=== PATIENT | female | born 1945 | race Caucasian/White ===

== ENCOUNTER 2016-07-21 20:19 | Observation (INO) | payer OTHER, MEDICARE ==
--- NOTE | 2016-07-21 20:17 | EDPHY ---
H & P Constitutional: Initial Vital Signs Temperature (C) 36.6 C 07/21/16 20:27 Heart Rate 82 07/21/16 20:27 Respiratory Rate 20 07/21/16 20:27 Blood Pressure 149/70 H 07/21/16 20:27 O2 Sat (%) 96 07/21/16 20:27 O2 Delivery Mode Room Air O2 (L/minute) 2 Allergies/Adverse Reactions: bacitracin [From Neosporin] Allergy (Unknown, Verified 07/21/16 20:30) bacitracin zinc [From Neosporin] Allergy (Unknown, Verified 07/21/16 20:30) gramicidin D [From Neosporin] Allergy (Unknown, Verified 07/21/16 20:30) latex [Latex] Allergy (Unknown, Verified 07/21/16 20:30) neomycin sulfate [From Neosporin] Allergy (Unknown, Verified 07/21/16 20:30) phenytoin sodium [From Dilantin] Allergy (Unknown, Verified 07/21/16 20:30) Rash phenytoin sodium extended [From Dilantin] Allergy (Unknown, Verified 07/21/16 20 :30) Rash polymyxin B [From Neosporin] Allergy (Unknown, Verified 07/21/16 20:30) polymyxin B sulfate [From Neosporin] Allergy (Unknown, Verified 07/21/16 20:30) tobramycin [Tobramycin] Allergy (Unknown, Verified 07/21/16 20:30) Home Medications: Medication Instructions Recorded ESTRADIOL 01/05/10 Hycosamine 01/05/10 PROMETRIUM 01/05/10 SYNTHROID 01/05/10 ZESTRIL 01/05/10 oxyCODONE/APAP 5/325 [Percocet 1 tab PO Q6 #15 tab 01/05/10 5/325] Medical Decision Making ED Course/Re-evaluation: CHIEF COMPLAINT: "felt like somebody was squeezing on top of my left breast" HISTORY OF PRESENT ILLNESS: The patient is a 70 y/o female arriving via EMS with "squeezing" left-sided chest pain onset today around 14:00. She developed nausea last night around 23:00 that has persisted today. She has felt general malaise throughout the day. She describes her chest pain as waxing and waning and radiates to her back. She denies shortness of breath, dizziness, near- syncope. She feels like the pressure is not present upon assessment. She reports she scored in the 90th percentile with a calcium score of 404 on a heart scan in May 2016. She has not had any provocative cardiac testing. REVIEW OF SYSTEMS: A 10 point review of systems was performed and is negative with the exception of the elements mentioned in the history of present illness. PHYSICAL EXAM: HR, BP, O2 Sat, RR. Temp noted General Appearance: Alert, well hydrated, appropriate, and non-toxic appearing. Head: Atraumatic without scalp tenderness or obvious injury Eyes: Pupils equal, round, reactive to light and accommodation, EOMI, no trauma , no injection. Ears: Clear bilaterally, no perforation, normal landmarks Nose: Atraumatic, no rhinorrhea, clear. Throat: There is no erythema or exudates, no lesions, normal tonsils, mucus membranes moist. Neck: Supple, 2+ carotid upstroke, nontender, no lymphadenopathy. Respiratory: No retractions, no distress, no wheezes, and no accessory muscle use. Lungs are clear to auscultation bilaterally. Cardiovascular: Regular rate and rhythm, no murmurs, rubs, or gallops. Bilateral carotid, radial, dorsalis pedis, and posterior tibial pulses intact. Good capillary refill all extremities. Gastrointestinal: Abdomen is soft, nontender, non-distended, no masses, no rebound, no guarding, no peritoneal signs. Musculoskeletal: Normal active ROM of all extremities, atraumatic. Neurological: Alert, appropriate, and interactive. The patient has normal DTRs and non-focal cranial nerves, motor, sensory, and cerebellar exam. Skin: No rashes, good turgor, no nodules on palpation. Past medical history: Epilepsy Past surgical history: Denies Family history: Noncontributory Social history: Lives [place] [address] in [facility]. Neurologist: Dr. Morrissey Prior medical records reviewed including EBCT 05/24/16 and ED visit 09/22/14 for paresthesia and weakness. DIAGNOSTICS/PROCEDURES/CRITICAL CARE TIME: The 12 lead EKG was interpreted by myself. EKG performed at 20:27 has an abnormal baseline and shows ST depression. Repeat EKG at 20:38 shows normal sinus rhythm rate 66 that is similar to previous EKGs. See hard copy and/or "tracemaster" electronic copy for interpretation. Study: Chest x-ray Indication: Pain Results: Chest x-ray was obtained. The results of the study are negative. Radiologist agrees. I viewed the images myself on the PACS system. DIFFERENTIAL DIAGNOSIS: The differential diagnosis for the patient's chest pain included but was not limited to myocardial ischemia, pulmonary embolus, chest wall pain, pleural inflammation, and pulmonary infectious causes. MEDICAL DECISION MAKING: This is a 70 y/o female with a calcium score of 404 from two months ago presenting with almost 24 hours of nausea and squeezing chest pain onset about 6 hours ago. Her exam is unremarkable. She self-administered 324mg PO aspirin at 17:00. EMS administered 2 nitro en route, which improved her chest pain from 5/10 to 0/10, but resulted in a headache. Plan for full cardiac work up. Initial EKG showed some ST depression, but repeat EKG 10 minutes later showed normal sinus rhythm consistent with prior EKGs. Chest x-ray is negative for acute process. CHEM sample was hemolyzed and needs to be redrawn. Plan for admission regardless of troponin. (Adryan Cosme) 2216: this patient was signed over to me at 10:00 p.m. shift change. Pending a troponin she had left-sided chest pressure chest discomfort with nausea no history of coronary artery disease except elevated calcium score. No history of stress test. Patient be admitted to Dr. Valentin the hospitalist service for chest discomfort serial enzymes, stress testing cardiac rule out. At this time I did evaluate her she is hemodynamically stable no acute distress. Denies chest pain. Full-dose aspirin was taken by the patient earlier, nitroglycerin was given by EMS 2 rounds which improved her chest discomfort. Her initial EKG had some ST segment flattening 2nd EKG was unremarkable. It is noted her sodium is low at [address] Slade her efficiency manager is aware of. Patient to be admitted to EACU observation status for ACS rule out. (Shady Haider) - Data Points Laboratory Results: Laboratory Results 07/21/16 20:40 07/21/16 21:30 07/21/16 07/21/16 21:30 20:40 WBC 5.57 10^3/uL (3.80-9.50) RBC 4.40 10^6/uL (4.18-5.33) Hgb 14.6 g/dL (12.6-16.3) Hct 39.6 % (38.0-47.0) MCV 90.0 fL (81.5-99.8) MCH 33.2 pg (27.9-34.1) MCHC 36.9 H g/dL (32.4-36.7) RDW 12.3 % (11.5-15.2) Plt Count 248 10^3/uL (150-400) MPV 9.3 fL (8.7-11.7) Neut % (Auto) 57.2 % (39.3-74.2) Lymph % (Auto) 33.2 % (15.0-45.0) Allen % (Auto) 7.4 % (4.5-13.0) Eos % (Auto) 1.1 % (0.6-7.6) Baso % (Auto) 0.7 % (0.3-1.7) Nucleat RBC Rel Count 0.0 % (0.0-0.2) Absolute Neuts (auto) 3.19 10^3/uL (1.70-6.50) Absolute Lymphs (auto) 1.85 10^3/uL (1.00-3.00) Absolute Monos (auto) 0.41 10^3/uL (0.30-0.80) Absolute Eos (auto) 0.06 10^3/uL (0.03-0.40) Absolute Basos (auto) 0.04 10^3/uL (0.02-0.10) Absolute Nucleated RBC 0.00 10^3/uL (0-0.01) Immature Gran % 0.4 % (0.0-1.1) Immature Gran # 0.02 10^3/uL (0.00-0.10) Sodium 126 L mEq/L TNP (134-144) Potassium 3.7 mEq/L TNP (3.5-5.2) Chloride 96 L mEq/L TNP (97-110) Carbon Dioxide 23 mEq/l TNP (22-31) Anion Gap 7 mEq/L TNP (8-16) BUN 8 mg/dL TNP (7-23) Creatinine 0.7 mg/dL TNP (0.6-1.0) Estimated GFR > 60 TNP Glucose 97 mg/dL TNP (70-100) Calcium 8.2 L mg/dL TNP (8.5-10.4) Troponin I 0.019 ng/mL REJ (0-0.034) NT-Pro-B Natriuret Pep 358 H pg/mL TNP (0-125) Specimen Hemolysis PULP ROLLER Medications Given: Discontinued Medications Aspirin (Aspirin) 324 mg PO EDNOW ONE Stop: 07/21/16 20:37 Last Admin: 07/21/16 20:59 Dose: Not Given Ondansetron HCl (Zofran) 4 mg IVP EDNOW ONE Stop: 07/21/16 20:37 Last Admin: 07/21/16 20:59 Dose: Not Given Departure - Departure Disposition: [facility] Inpatient Acute Clinical Impression: Chest pain Qualifiers: Chest pain type: other chest pain Qualifier Code: (R07.89) Other chest pain Condition: Fair Referrals: Patient,NotPresent [Unknown] - As per Instructions Report Scribed for: Adryan Cosme Report Scribed by: Samreen Green Date of Report: 07/21/16 Time of Report: 20:33
--- NOTE | 2016-07-21 20:29 | CPEKG ---
Heart Rate: 76 RR Interval: 789 P-R Interval: 160 QRSD Interval: 90 QT Interval: 420 QTC Interval: 473 P [place]: 66 QRS [place]: 22 T Wave [place]: 44 EKG Severity - ABNORMAL ECG - EKG Impression: SINUS RHYTHM EKG Impression: MULTIPLE VENTRICULAR PREMATURE COMPLEXES EKG Impression: MINIMAL ST DEPRESSION, ANTERIOR LEADS Electronically Signed By: Adryan Cosme 21-Jul-2016 21:01:34
[2016-07-21] MEDS ORDERED: ONDANSETRON 4 MG/2 ML VIAL IVP ONE (20:36)
[2016-07-21] MEDS ORDERED: NITROGLYCERIN 0.4 MG BTL SL PRN (20:36)
[2016-07-21] MEDS ORDERED: ASPIRIN 81 MG CHEWABLE TAB PO ONE (20:36)
--- NOTE | 2016-07-21 20:41 | CPEKG ---
Heart Rate: 66 RR Interval: 909 P-R Interval: 156 QRSD Interval: 82 QT Interval: 428 QTC Interval: 449 P [place]: 54 QRS [place]: 14 T Wave [place]: 36 EKG Severity - NORMAL ECG - EKG Impression: SINUS RHYTHM Electronically Signed By: Adryan Cosme 21-Jul-2016 21:01:34
[2016-07-21 20:48] LABS: % IMMATURE GRANULYOCYTES 0.4 % (0.0-1.1); ABSOLUTE IMMATURE GRANULOCYTES 0.02 10^3/uL (0.00-0.10); ADD DIFF? NO; ADD MORPH? NO; ADD SCAN? NO; ATYPICAL LYMPHOCYTE FLAG 10 (0-99); FRAGMENT RBC FLAG 0 (0-99); HEMATOCRIT 39.6 % (38.0-47.0); HEMOGLOBIN 14.6 g/dL (12.6-16.3); LEFT SHIFT FLG 0 (0-99); LIPEMIA HEMOLYSIS FLAG 90 (0-99); MEAN CELL HEMOGLOBIN 33.2 pg (27.9-34.1); MEAN CELL HEMOGLOBIN CONCENTR. 36.9 g/dL (32.4-36.7); MEAN PLATELET VOLUME 9.3 fL (8.7-11.7); PLATELET CLUMPS FLAG 0 (0-99); PLATELET COUNT 248 10^3/uL (150-400); RED CELL DISTRIBUTION WIDTH 12.3 % (11.5-15.2)
[2016-07-21] MEDS ORDERED: ACETAMINOPHEN 500 MG TAB ONE (20:54)
--- NOTE | 2016-07-21 21:32 | DX ---
PA and Lateral Chest X-ray 5 hours History: Chest pain. Findings: Heart size and pulmonary vasculature are normal. The lungs are clear without infiltrates or effusions. There is no pneumothorax. The osseous structures are intact. Impression: Normal chest x-ray.
[2016-07-21 21:50] LABS: ANION GAP 7 mEq/L (8-16); CALCIUM 8.2 mg/dL (8.5-10.4); CARBON DIOXIDE 23 mEq/l (22-31); CHLORIDE 96 mEq/L (97-110); CREATININE 0.7 mg/dL (0.6-1.0); GLOMERULAR FILTRATION RATE > 60; GLUCOSE 97 mg/dL (70-100); POTASSIUM 3.7 mEq/L (3.5-5.2); SODIUM 126 mEq/L (134-144)
[2016-07-21 22:02] LABS: TROPONIN I 0.019 ng/mL (0-0.034)
[2016-07-21 23:25] VITALS: RESP 16
[2016-07-22] MEDS ORDERED: ONDANSETRON 4 MG/2 ML VIAL IVP PRN (00:22)
[2016-07-22] MEDS ORDERED: hydrALAZINE 20 MG/ML VIAL IVP PRN (00:22)
[2016-07-22] MEDS ORDERED: ACETAMINOPHEN 325 MG TAB PO PRN (00:22)
[2016-07-22] MEDS ORDERED: LISINOPRIL 5 MG TAB PO ONE (00:22)
[2016-07-22] MEDS ORDERED: PROMETHAZINE HCL 25 MG/ML VIAL IVP PRN (00:22)
[2016-07-22 00:44] LABS: ALBUMIN 3.3 g/dL (3.5-5.0); BILIRUBIN,TOTAL 0.6 mg/dL (0.1-1.4); BILIRUBIN-CONJUGATED 0.1 mg/dL (0.0-0.5); BILIRUBIN-UNCONJUGATED 0.5 mg/dL (0.0-1.1); TOTAL PROTEIN 6.2 g/dL (6.3-8.2)
[2016-07-22 00:56] LABS: TROPONIN I 0.02 ng/mL (0-0.034)
--- NOTE | 2016-07-22 01:41 | GHP ---
[f rep st] HISTORY AND PHYSICAL DATE OF ADMISSION: 07/21/2016 CHIEF COMPLAINT: Chest pain. HISTORY: The patient is a 70-year-old female, who developed new onset of chest pain today. She noti prasad a squeezing, left-sided chest pain at 2 o'clock this afternoon. When she woke up this morning, s he had nausea. The chest pain was off and on for a few hours, but she is currently chest pain-free. She denies any radiation. The pain is nonpleuritic, and she denies any shortness of breath. She williamson s never had any chest pain like this previously, and she has never had previous stress testing. She did recently, however, have a calcium score done. It was elevated. PAST MEDICAL HISTORY: 1. Seizure disorder. 2. Hypertension. 3. Hyponatremia. 4. Depression. 5. Lupus, in remission. PAST SURGICAL HISTORY: 1. ACL repair. 2. Ovarian exploratory surgery. MEDICATIONS: Please see computer record for full detailed list. ALLERGIES: To latex, Dilantin, Neosporin, and aminoglycoside eye drops. SOCIAL HISTORY: No alcohol. She drinks 1 glass of wine per night. She lives alone. 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 REVIEW OF SYSTEMS: Complete review of systems obtained. Review of systems is negative on constituti onal, HEENT, GI, pulmonary, cardiovascular, , hematologic, endocrine, and psych, except for positiv e pertinent and negatives which were listed as in HPI. FAMILY HISTORY: Extensive for coronary artery disease in their 60s. Her aunt of coronary arter y disease in her 60s. Her father suffered his first coronary event in his 60s. Her grandfather of a massive AL at age 54. PHYSICAL EXAMINATION: GENERAL: Well-developed, well-nourished female, in no acute distress. VITAL SIGNS: Temperature is 36.3, pulse 67, blood pressure 155/82, saturating 94% on room air. EYES: Nor mal conjunctivae. Pupils equal, react to light. ENT: Normal ears and nose. Hearing intact. Zuleima l lips and teeth. Oropharynx moist. NECK: Trachea midline. No thyromegaly. CHEST: Normal respir atory effort. LUNGS: Clear to auscultation bilaterally. CARDIOVASCULAR: Regular rhythm. No murmu r. No lower extremity edema. ABDOMEN: Soft, nontender. No hepatosplenomegaly. SKIN: Warm, dry, intact. No rash. MUSCULOSKELETAL: No cyanosis or clubbing. Strength 5/5 upper and lower extremiti es. NEUROLOGIC: Cranial nerves intact. Normal sensation to light touch. PSYCH: Alert and oriente d x3. Normal mood and affect. Normal judgment and insight. Normal memory. LABS: White count 5.57, hematocrit 39.6, platelets 248. Sodium 126, potassium 3.7, chloride 96, bic arb 23, BUN 8, creatinine 0.7, glucose 97. BNP is 358. EKG reviewed by me and my personal interpretation is normal sinus rhythm. No ST or T-wave changes. Chest x-ray is negative. ASSESSMENT AND PLAN: 1. Chest pain. She has multiple risk factors including family history, hyperlipidemia, hypertension , and an elevated calcium score. We will follow serial troponins and EKG. We will recheck a lipid p danielle in the morning. She reports primary care had noted it to be elevated in the past and was on the verge of starting her on a statin drug in the near future. We will also start her on a daily aspiri n. We will order stress testing for tomorrow morning. She states she is unable to exercise secondar y to chronic knee pain and plantar fasciitis. We will therefore order a Lexiscan with [facility]. 2. Hyponatremia. She follows with Dr. Slade. He recently decreased her Prozac down to 10 mg. Her last outpatient sodium was 128, and it has now worsened to 126. We will check a urine sodium. I f elevated, that would indicate SIADH, and a fluid restriction should be initiated. 3. Seizure disorder. Home med reconciliation is pending. 4. Hypertension. She takes only lisinopril 5 mg at night. We will watch blood pressures throughout her hospitalization, as she may need increasing dosage. CODE STATUS: Full. ADMISSION STATUS: We will admit to observation and depending on cardiac evaluation results, will det ermine further course. DVT PROPHYLAXIS: She is moderate risk. We will place her on subcu Lovenox. /[id number]/MODL
--- NOTE | 2016-07-22 05:20 | CPEKG ---
Heart Rate: 68 RR Interval: 882 P-R Interval: 164 QRSD Interval: 84 QT Interval: 428 QTC Interval: 456 P [place]: 41 QRS [place]: 25 T Wave [place]: 49 EKG Severity - NORMAL ECG - EKG Impression: SINUS RHYTHM Electronically Signed By: Sb Huber 22-Jul-2016 10:52:16
[2016-07-22 05:29] LABS: ALANINE AMINOTRANSFERASE 23 IU/L (9-52); ALBUMIN 3.2 g/dL (3.5-5.0); ALKALINE PHOSPHATASE 51 IU/L (38-126); ANION GAP 5 mEq/L (8-16); ASPARTATE AMINOTRANSFERASE 22 IU/L (14-46); BILIRUBIN,TOTAL 0.5 mg/dL (0.1-1.4); BILIRUBIN-CONJUGATED 0.2 mg/dL (0.0-0.5); BILIRUBIN-UNCONJUGATED 0.3 mg/dL (0.0-1.1); CALCIUM 8.5 mg/dL (8.5-10.4); CARBON DIOXIDE 27 mEq/l (22-31); CHLORIDE 101 mEq/L (97-110); CHOLESTEROL 186 mg/dL (140-220); CHOLESTEROL/HDL RATIO 3.21 RATIO (1.00-4.44); CREATININE 0.9 mg/dL (0.6-1.0); GLOMERULAR FILTRATION RATE > 60; GLUCOSE 93 mg/dL (70-100); HIGH DENSITY LIPOPROTEIN 58 mg/dL (40-85); LOW DENSITY LIPOPROTEIN 110 mg/dL (80-100); NON-HIGH DENSITY LIPOPROTEIN 128 mg/dL (90-129); POTASSIUM 4.5 mEq/L (3.5-5.2); SODIUM 133 mEq/L (134-144); TOTAL PROTEIN 5.7 g/dL (6.3-8.2); TRIGLYCERIDE 94 mg/dL (35-135); VERY LOW DENSITY LIPOPROTEINS 18 mg/dL (8-25)
[2016-07-22 05:38] LABS: TROPONIN I < 0.012 ng/mL (0-0.034)
[2016-07-22] MEDS ORDERED: NS 500 ML IV ONE (07:00)
[2016-07-22 07:43] VITALS: PULSE 91; TEMP 98.4; O2SAT 93
[2016-07-22] MEDS ORDERED: ASPIRIN EC 325 MG TAB PO SCH (09:00)
[2016-07-22] MEDS ORDERED: ENOXAPARIN 40 MG/0.4 ML SYR SC SCH (09:00)
[2016-07-22] MEDS ORDERED: NS 1,000 ML IV ONE (11:12)
[2016-07-22] MEDS ORDERED: OXcarbazepine 300 MG TAB PO SCH (11:15)
[2016-07-22] MEDS ORDERED: ASPIRIN EC 81 MG TAB PO SCH (11:30)
[2016-07-22] MEDS ORDERED: ESTRADIOL 0.5 MG TAB PO SCH (11:30)
[2016-07-22] MEDS ORDERED: PILOCARPINE HCL 5 MG TAB PO SCH (11:30)
[2016-07-22] MEDS ORDERED: PROGESTERONE,MICR 100 MG CAP PO SCH (11:30)
[2016-07-22] MEDS ORDERED: FLUoxetine 10 MG CAP PO SCH (11:30)
--- NOTE | 2016-07-22 14:10 | ECHO ---
[id number] + + [address] : : [place] [address] : : [phone] + + Adult Echocardiographic Report + ----+ :Name: DANK MYLES HStudy Date: 07/22/2016 10:25 AM : : Hospital Admission Number: [id number] : :: 1945 Gender: Female Height: 62 i n : :Age: 70 yrs Race: WH Weight: 140 lb : :Reason For Study: nausea, sharp chest pain : : BSA: 1.6 met ers2: :History: nausea : + ----+ MMode/2D Measurements & Calculations IVSd: 1.4 cm RVDd: 2.7 cm FS: 43.2 % Ao root diam: LVPWd: 0.86 cm LVIDd: 2.8 cm EDV(Teich): 3.1 cm LVIDs: 1.6 cm 28.9 ml LA dimension: ESV(Teich): 3.0 cm 6.9 ml EF(Teich): 76.1 % LVLd ap4: 8.4 cm SV(MOD-sp4): EDV(MOD-sp4): 73.0 ml 105.0 ml LVLs ap4: 7.0 cm ESV(MOD-sp4): 32.0 ml EF(MOD-sp4): 69.5 % Normal Measurement Values: + + :LVIDd (3.5-5.7cm) IVSd (0.6-1.1cm) LVPWd (0.6-1.1cm) Aortic Root (2.0-3.7cm)Left Atrium (1.5-4.0cm): :LV Vol(d) (76-115ml) LV Vol(s) (29-48ml) Ejec Fraction (50-65%)PV Danny (0.6- 1.2m/s) TV Danny (0.4-1.0m/s) : :MV E Danny (0.8-1.0m/s)MV A Danny (0.3-1.0m/s)LVOT Danny (0.7-1.2m/s) Asc Ao Danny ( 0.9-1.8m/s) : + + Doppler Measurements & Calculations MV E max danny: MV V2 max: MV P1/2t max danny: Ao V2 max: 61.7 cm/sec 93.5 cm/sec 61.5 cm/sec 101.4 cm/sec MV A max danny: MV max PG: MV P1/2t: 77.0 msec Ao max P.8 cm/sec 3.5 mmHg MVA(P1/2t): 2.9 cm2 4.1 mmHg MV E/A: 0.67 MV V2 mean: MV dec slope: MV dec time: 54.6 cm/sec 0.24 sec MV mean P.1 cm/sec2 1.3 mmHg MV V2 VTI: 18.8 cm LV V1 max: PA V2 max: TR max danny: 84.9 cm/sec 93.4 cm/sec 209.6 cm/sec LV V1 max PG: PA max PG: TR max P.6 mmHg 2.9 mmHg 3.5 mmHg RAP systole: 5.0 mmHg RVSP(TR): 22.6 mmHg Left Ventricle The left ventricle is normal in size and function. Proximal septal thickening is noted. Echo findings are not consistent with left ventricular outflow obstruction. Ejection Fraction = 70%. There is Doppler evidence for diastolic dysfunction. No regional wall motion abnormalities noted. Right Ventricle The right ventricle is normal in size and function. Atria The left atrial size is normal. Right atrial size is normal. Mitral Valve The mitral valve leaflets appear thickened, but open well. Reduced posterior mitral leaflet mobility. There is no mitral valve stenosis. There is mild mitral regurgitation. Tricuspid Valve The tricuspid valve is normal in structure and function. There is no tricuspid stenosis. There is trace to mild tricuspid regurgitation. Right ventricular systolic pressure is 23mmHg. Aortic Valve The aortic valve is trileaflet. There is no aortic stenosis. There is no aortic insufficiency. Pulmonic Valve The pulmonic valve is not well visualized. There is no pulmonic valvular regurgitation. Great Vessels The aortic root is normal size. Pericardium/Pleural There is no pericardial effusion. Conclusion A two-dimensional transthoracic echocardiogram with M-mode and Doppler was performed. The left ventricle is normal in size and function. Ejection Fraction = 70%. Proximal septal thickening is noted. Echo findings are NOT consistent with left ventricular outflow obstruction. There is Doppler evidence for diastolic dysfunction. The mitral valve leaflets appear thickened. Reduced posterior mitral leaflet mobility. There is mild mitral regurgitation. There is trace to mild tricuspid regurgitation. Right ventricular systolic pressure is 23mmHg. Final Reading Physician: Celeste Henderson signed on 07/22/2016 02:09 PM Ordering Physician: Bibi Ortiz Performed By: Evie Talavera
[2016-07-22 15:07] VITALS: BP 112/73
--- NOTE | 2016-07-22 15:57 | GDS ---
[f rep st] DISCHARGE SUMMARY DISCHARGE DIAGNOSES: 1. Intermittent chest pain, probably not cardiac. 2. Hyponatremia. 3. Nausea and dehydration. 4. History of depression. 5. History of seizure disorder. 6. Chronic hyponatremia. HISTORY: This is a 70-year-old female who presented with intermittent chest pain and nausea. HOSPITAL COURSE: Patient was admitted. Initial sodium was quite low at 123. Urine sodium was consi stent with SIADH. She was given a little bit of fluid, and she is feeling better. She was nauseous and had a headache in the morning and wanted to defer her stress testing until outpatient. She had n egative troponins and echocardiogram was negative. This is reasonable. She will be discharged home to be followed up with Cardiology. DISPOSITION: Home. DISCHARGE MEDICATIONS: She is to resume her home medicines. FOLLOWUP: She is instructed to follow up with Dr. Plata, whom she requests, in 1-2 weeks for outp atient stress testing. /[id number]/MODL
[2016-07-23] MEDS ORDERED: LEVOTHYROXINE 75 MCG TAB PO SCH (06:00)
== END 2016-07-22 14:23 | disposition home or self-care (01) ==
LOC: EDUNIT# → F2W 23:05
PROVIDERS: ADMIT Internal Medicine; ATTEND Internal Medicine
DX: R07.89 Other chest pain (principal); E87.1 Hypo-osmolality and hyponatremia; R11.0 Nausea; E86.0 Dehydration; F32.9 Major depressive disorder, single episode, unspecified; G40.909 Epilepsy, unspecified, not intractable, without status epilepticus; I10 Essential (primary) hypertension
CPT/HCPCS: 71020; 93005; 93306; G0378; J1650; J2405; J2550

== ENCOUNTER → 2016-09-06 | Outpatient (CLI) | payer OTHER, MEDICARE | LOC: FIMAGING 12:50 | PROVIDERS: ATTEND Internal Medicine Nephrology | DX: R91.8 Other nonspecific abnormal finding of lung field (principal) ==

== ENCOUNTER → 2016-10-30 | Outpatient (CLI) | payer OTHER, MEDICARE | LOC: BHFA 11:45 | PROVIDERS: ATTEND Internal Medicine Interventional Cardiology | DX: I25.10 Atherosclerotic heart disease of native coronary artery without angina pectoris (principal); E78.5 Hyperlipidemia, unspecified ==

== ENCOUNTER → 2016-11-01 | Outpatient (CLI) | payer OTHER, MEDICARE | LOC: BHFA 11:00 | PROVIDERS: ATTEND Internal Medicine Cardiovascular Disease | DX: R07.9 Chest pain, unspecified (principal) ==

== ENCOUNTER → 2017-03-05 | Outpatient (CLI) | payer OTHER, MEDICARE | LOC: FIMAGING 11:46 | PROVIDERS: ATTEND Internal Medicine | DX: Z12.31 Encounter for screening mammogram for malignant neoplasm of breast (principal) | CPT/HCPCS: G0202 ==

== ENCOUNTER → 2017-11-28 | Outpatient (CLI) | payer OTHER | LOC: FIMAGING 09:05 | PROVIDERS: ATTEND Physical Medicine & Rehabilitation | DX: M25.552 Pain in left hip (principal) ==

== ENCOUNTER → 2017-12-25 | Outpatient (CLI) | payer OTHER | LOC: FIMAGING 15:35 | DX: M54.5 Low back pain (principal); M43.17 Spondylolisthesis, lumbosacral region; M48.061 Spinal stenosis, lumbar region without neurogenic claudication; M53.87 Other specified dorsopathies, lumbosacral region ==

== ENCOUNTER → 2018-03-12 | Outpatient (CLI) | payer OTHER | LOC: FIMAGING 13:46 | PROVIDERS: ATTEND Internal Medicine | DX: Z13.820 Encounter for screening for osteoporosis (principal); M85.89 Other specified disorders of bone density and structure, multiple sites; L93.0 Discoid lupus erythematosus; E03.9 Hypothyroidism, unspecified; Z78.0 Asymptomatic menopausal state ==

== ENCOUNTER → 2018-03-20 | Outpatient (CLI) | payer OTHER | LOC: FIMAGING 10:59 | PROVIDERS: ATTEND Psychiatry & Neurology Neurology | DX: G40.909 Epilepsy, unspecified, not intractable, without status epilepticus (principal); S06.0X9A Concussion with loss of consciousness of unspecified duration, initial encounter ==